=== PATIENT | male | born 1965 | race Two or more races ===

== ENCOUNTER 2022-02-21 13:08 | Emergency (ER) | payer SELFPAY ==
[~2022-02-21] VITALS: Ht 165.1 cm; Wt 77.6 kg
[2022-02-21] MEDS ORDERED: cloNIDine HCL 0.1 MG TAB PO ONE (13:30)
[2022-02-21] MEDS ORDERED: AMLO-496 PO (15:15)
[2022-02-21] MEDS ORDERED: ENAL20TA8 PO (15:15)
[2022-02-21 15:43] VITALS: BP 161/103
== END 2022-02-21 15:47 | disposition home or self-care (01) ==
LOC: ER 13:08
DX: I16.0 Hypertensive urgency (principal)